=== PATIENT | female | born 1980 | race Caucasian/White ===

== ENCOUNTER 2020-02-12 02:14 | Emergency (ER) | payer MEDICAID, OTHER ==
[~2020-02-12] VITALS: Ht 160 cm; Wt 73.7 kg
--- OUTSIDE RECORDS SUMMARY | 2020-02-12 02:23 | XMS REPORT | Continuity of Care Document ---
Author Organization Unknown Address Unknown Phone Unavailable Allergies There is no data. Medications There is no data. Problems There is no data. Procedures There is no data. 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 Visit Date/Time Discharge Status Pt. Type Provider Facility Loc./Unit Complaint [id number] 10/07/2019 13:20:00 10/07/2019 23:59: 59 C[facility] Outpatient [facility] [id number] 10/07/2019 13:20:00 Document Registration
[2020-02-12] MEDS ORDERED: LIDOCAINE 1% INJ 20 ML 20 ML VIAL ONE (02:33)
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
[2020-02-12] MEDS ORDERED: LIDOCAINE 1% INJ 20 ML 20 ML VIAL INJ ONE (03:15)
[2020-02-12] MEDS ORDERED: BACI28.35 TP (03:50)
[2020-02-12] MEDS ORDERED: IBUP-1780 PO (03:51)
[2020-02-12 03:54] VITALS: BP 162/92
== END 2020-02-12 03:54 | disposition home or self-care (01) ==
LOC: ER FS 02:19
DX: S01.81XA Laceration without foreign body of other part of head, initial encounter (principal); V86.65XA Passenger of 3- or 4- wheeled all-terrain vehicle (ATV) injured in nontraffic accident, initial encounter
CPT/HCPCS: 12013